=== PATIENT | female | born 1970 | race Caucasian/White ===

== ENCOUNTER 2017-01-31 08:29 | Emergency (ER) | payer OTHER ==
[~2017-01-31] VITALS: Ht 154.9 cm; Wt 74.0 kg
[~2017-01-31 08:29] MED LIST: GABAPENTIN300 MG PO; TORADOL10 MG PO; TYLENOL W/COD1 COMB1 PO; VALIUM5 MG PO
[2017-01-31] MEDS ORDERED: VALIUM2 MG PO (10:29)
[2017-01-31 10:39] VITALS: BP 117/78
== END 2017-01-31 10:42 | disposition home or self-care (01) ==
LOC: EME 08:29
DX: G89.29 Other chronic pain (principal); M54.5 Low back pain; M62.830 Muscle spasm of back; F17.200 Nicotine dependence, unspecified, uncomplicated
CPT/HCPCS: 99281; 99284; J3010

== ENCOUNTER 2017-03-26 18:20 | Emergency (ER) | payer OTHER ==
[~2017-03-26] VITALS: Ht 154.9 cm; Wt 72.0 kg
[~2017-03-26 18:20] MED LIST changes: +VALIUM2 MG PO
[2017-03-26] MEDS ORDERED: PERCOCET 5/31 TABLET PO (18:42)
[2017-03-26 19:50] VITALS: BP 114/63
== END 2017-03-26 19:51 | disposition home or self-care (01) ==
LOC: EME 18:20
DX: M25.561 Pain in right knee (principal); M25.562 Pain in left knee; F17.200 Nicotine dependence, unspecified, uncomplicated
CPT/HCPCS: 99281; 99283

== ENCOUNTER 2017-07-15 19:53 | Emergency (ER) | payer OTHER ==
[~2017-07-15] VITALS: Ht 154.9 cm; Wt 77.2 kg
[~2017-07-15 19:53] MED LIST changes: +LORTAB 7.5-3251 EACH PO; +PERCOCET 5/31 TABLET PO
[2017-07-15] MEDS ORDERED: NAPROSYN500 MG PO (21:24)
[2017-07-15 21:35] VITALS: BP 120/87
== END 2017-07-15 21:39 | disposition home or self-care (01) ==
LOC: EXP 19:53 → EME 19:53 → EXP 21:39
DX: S80.01XA Contusion of right knee, initial encounter (principal); S83.91XA Sprain of unspecified site of right knee, initial encounter; W18.2XXA Fall in (into) shower or empty bathtub, initial encounter; Y93.E1 Activity, personal bathing and showering; Y92.002 Bathroom of unspecified non-institutional (private) residence as the place of occurrence of the external cause; M17.11 Unilateral primary osteoarthritis, right knee; G89.29 Other chronic pain; Z79.891 Long term (current) use of opiate analgesic; F17.200 Nicotine dependence, unspecified, uncomplicated
CPT/HCPCS: 73564

== ENCOUNTER 2017-11-13 12:11 | Day surgery (SDC) | payer OTHER ==
[~2017-11-13] VITALS: Ht 154.9 cm; Wt 77.1 kg
[~2017-11-13 12:11] MED LIST changes: +LASIX40 MG PO; +LORTAB 10-3251 EACH PO; +NAPROSYN500 MG PO
[2017-11-13 13:03] VITALS: BP 106/67
[2017-11-13 16:55] VITALS: BP 123/61
[2017-11-13 17:30] VITALS: BP 118/58
== END 2017-11-13 17:40 | disposition home or self-care (01) ==
LOC: SDC 12:11
PROC: 0SBC4ZZ Excision of Right Knee Joint, Percutaneous Endoscopic Approach (ICD-10-PCS; principal; 2017-11-13)
DX: M94.261 Chondromalacia, right knee (principal); M23.41 Loose body in knee, right knee; M67.51 Plica syndrome, right knee; F32.9 Major depressive disorder, single episode, unspecified; F17.210 Nicotine dependence, cigarettes, uncomplicated; Z82.49 Family history of ischemic heart disease and other diseases of the circulatory system
CPT/HCPCS: J0131; J0690; J1100; J1170; J1885; J2405; J2795; J3010